=== PATIENT | female | born 1990 | race Hispanic/Latino ===

== ENCOUNTER 2021-04-11 16:10 | Emergency (ER) | payer BC, OTHER ==
[~2021-04-11] VITALS: Ht 160 cm; Wt 72.6 kg
[2021-04-11] MEDS ORDERED: PANTOPRAZOLE 40 MG/VIAL IVP ONE (17:00)
[2021-04-11] MEDS ORDERED: LIDOCAINE HCL 2% VISCOUS 15 ML UDCUP PO ONE (17:00)
[2021-04-11] MEDS ORDERED: DICYCLOMINE HCL 10 MG/5 ML ML PO ONE ×2 (17:00→17:03)
[2021-04-11] MEDS ORDERED: MAG/ALUM/SIMETH 30 ML UDCUP PO ONE (17:00)
[2021-04-11] MEDS ORDERED: 0.9%NACL 1000ML 1,000 ML IV ONE ×2 (17:00→17:04)
[2021-04-11] MEDS ORDERED: PANTOPRAZOLE 40 MG/VIAL ONE (17:03)
[2021-04-11] MEDS ORDERED: MAG/ALUM/SIMETH 30 ML UDCUP ONE (17:03)
[2021-04-11 17:06] LABS: BASOPHILS % (AUTO) 0.7 % (0.0-5.0); EOSINOPHILS % (AUTO) 1.1 % (0.0-8.0); HEMATOCRIT 27.1 % (36-48); LYMPHOCYTES % (AUTO) 10.1 % (21.0-51.0); MEAN CORPUSCULAR HEMOGLOBIN 28.7 pg (27.0-33.0); MEAN CORPUSCULAR HGB CONC 33.9 g/dL (32.0-36.0); MEAN CORPUSCULAR VOLUME 84.4 fL (79-99); MONOCYTES % (AUTO) 6.9 % (3.0-13.0); NEUTROPHILS % (AUTO) 80.9 % (40.0-77.0); PLATELET COUNT (AUTO) 230 K/uL (130-400); RED BLOOD CELL COUNT(AUTO) 3.21 MIL/uL (4.00-5.50); RED CELL DISTRIBUTION WIDTH 13.5 % (11.0-15.5); WHITE BLOOD COUNT (AUTO) 10.8 K/uL (4.8-10.8)
[2021-04-11 17:16] LABS: CREATININE 1.6 mg/dL (0.5-1.5); POTASSIUM 3.8 mmol/L (3.5-5.1)
[2021-04-11 17:18] LABS: AMPHET/METH SCREEN,URINE NEGATIVE (NEGATIVE); BARBITURATE SCREEN, URINE NEGATIVE (NEGATIVE); BENZODIAZEPINES SCREEN,URINE NEGATIVE (NEGATIVE); CANNABINOID SCREEN,URINE NEGATIVE (NEGATIVE); COCAINE SCREEN,URINE NEGATIVE (NEGATIVE); OPIATE SCREEN,URINE NEGATIVE (NEGATIVE); PHENCYCLIDINE SCREEN,URINE NEGATIVE (NEGATIVE)
[2021-04-11 17:20] LABS: ALBUMIN 2.8 g/dL (3.5-5.0); BILIRUBIN,TOTAL 0.4 mg/dL (0.2-1.0); TOTAL PROTEIN, SERUM 6.7 g/dL (6.0-8.3)
[2021-04-11] MEDS ORDERED: HYDRALAZINE 20MG/ML VIAL IV ONE (17:30)
[2021-04-11] MEDS ORDERED: CLONIDINE HCL 0.2 MG TABLET PO ONE ×2 (17:30→17:33)
[2021-04-11] MEDS ORDERED: HYDRALAZINE 20MG/ML VIAL ONE (17:33)
[2021-04-11] MEDS ORDERED: ESOM40CA PO (18:43)
[2021-04-11] MEDS ORDERED: LISI10TA24 PO (18:43)
[2021-04-11 18:55] VITALS: BP 172/110
== END 2021-04-11 18:59 | disposition home or self-care (01) ==
LOC: EDH 16:10
DX: K29.00 Acute gastritis without bleeding (principal); I16.0 Hypertensive urgency; I10 Essential (primary) hypertension; J45.909 Unspecified asthma, uncomplicated
CPT/HCPCS: 36415; 80053; 80305; 81025; 83690; 84484; 85025; 93005; 96361; 96374; 96375; 99284; C9113; J0360; J7030